=== PATIENT | male | born 1940 | race Caucasian/White ===

== ENCOUNTER → 2017-10-29 11:03 | Outpatient (CLI) | payer MEDICARE, SELFPAY ==
--- NOTE | 2017-10-29 11:06 | RAD_ITS ---
STUDY: X-RAY - LUMBOSACRAL SPINE REASON FOR EXAM: Male, 76 years old. Back pain. Pain in the right leg. TECHNIQUE: 6 view(s) of the lumbosacral spine were obtained. COMPARISON: None FINDINGS: There is straightening of the normal lumbar lordosis. There is a mild dextroscoliosis with the convexity at L4. There is retrolisthesis of L4 and L5 of 6 mm. This is maintained in flexion and extension. The alignment is otherwise preserved. There is multilevel endplate spondylosis of the lumbar vertebrae. There is multi-level degenerative disc disease with multi-level disc space narrowing. There is no evidence of acute fracture or loss of vertebral axial height. Normal bilateral sacral ala, sacroiliac joints, and visualized sacrum. Normal visualized soft tissue structures. Surgical clips are seen in the right upper quadrant. RAD/L/S Spine Comp/w Bending Views IMPRESSION: Degenerative changes of the spine, as detailed above. Electronically Signed: Francisco Zeng DO at 17:18 EDT Tel [phone], Service support ,
== END ==
PROVIDERS: Family Provider Family Medicine; PCP Family Medicine; Visit Provider Orthopaedic Surgery
DX: R29.898 Other symptoms and signs involving the musculoskeletal system (principal)
CPT/HCPCS: 72114

== ENCOUNTER → 2017-12-03 07:01 | Outpatient (CLI) | payer MEDICARE, SELFPAY ==
--- NOTE | 2017-12-03 07:08 | MRI_ITS ---
STUDY: MRI LUMBAR SPINE WITHOUT CONTRAST REASON FOR EXAM: Male, 76 years old. Back pain and right leg pain. TECHNIQUE: Standardized fat and water weighted pulse sequences were obtained in the sagittal and axial planes. COMPARISON: Lumbar spine radiographs 10/29/2017. FINDINGS: T11-T12: (Sagittal only). Schmorl's nodes in the vertebral endplates. Normal disc height and morphology. Normal central canal and bilateral intervertebral neural foramina. T12-L1: (Sagittal only). Schmorl's nodes in the vertebral endplates. Normal disc height and morphology. Normal central canal and bilateral intervertebral neural foramina. Normal lumbar lordosis. There is no substantial scoliosis. Normal conus medullaris that terminates at the lower T12 vertebral body level. L1-2: Schmorl's nodes in the vertebral endplates. Minimal disc space height narrowing. Tiny posterior annular fissure. Normal central canal and bilateral lateral recesses. Mild asymmetric disc facet arthropathy. Normal bilateral intervertebral neural foramina. L2-3: Schmorl's nodes in the vertebral endplates. Normal disc height and morphology. Mild central canal stenosis secondary to developmentally short pedicles and dorsal epidural lipomatosis. The AP canal diameter is 9.6 mm. Mild asymmetric degenerative facet arthropathy. Normal bilateral intervertebral neural foramina. L3-4: Normal L3 inferior endplate. Minimal left lateral wedging of the L4 superior endplate with Modic type II vertebral marrow fatty change underneath the left side of the fell 4 superior endplate.. Normal disc height and morphology. Mild central canal stenosis with an AP canal diameter 8.6 mm. Left posterior ligamentum flavum hypertrophy. Moderate left degenerative facet hypertrophy. Mild right degenerative facet hypertrophy. Normal bilateral intervertebral neural foramina. L4-5: Anterior and posterior marginal spurs. Moderate disc space height narrowing. Asymmetric degenerative retrolisthesis of L4 on L5. Moderate central canal stenosis with an AP canal diameter of 7.9 mm. Moderate bilateral degenerative facet hypertrophy. Left posterior ligamentum flavum. Normal bilateral intervertebral neural foramina. L5-S1: Pronounced disc space height narrowing. Grade 1 degenerative retrolisthesis of L5 on S1. No deformity of the tapered narrowing central canal due to the presence of ventral epidural fat. Normal bilateral lateral recesses. Mild to moderate degenerative facet arthropathy. Normal bilateral intervertebral neural foramina. Abnormal T1 hypointensity of the cervical, the iliac side of the SI joints and the entire vertebral bodies of the lumbar spine and sacrum. Normal visualized paraspinous soft tissue structures. MRI/Spine Lumbar (Routine) IMPRESSION: 1. Abnormal diffuse T1 hypointensity the vertebral marrow throughout the lumbar spine, the sacrum and iliac bones. The possibility of multiple myeloma is difficult to exclude. This is feasible for CT-guided core bone biopsy if desired. 2. No MRI evidence of lumbar extruded disc fragment or acute fractures or subacute fractures. 3. Pronounced S1 disc space height narrowing with grade 1 degenerative retrolisthesis of L5 on S1. 4. Moderate L4-L5 disc space height narrowing with moderate central canal stenosis, asymmetric degenerative retrolisthesis of L4 on L5 and moderate bilateral degenerative facet arthropathy. 5. Minimal left lateral wedging of the L4 superior endplate with Modic type II degenerative vertebral marrow fatty change underneath the L4 superior endplate. 6. Mild central canal stenosis at L2-L3 and L3-L4 disc levels. Electronically Signed: Merrick Thompson MD at 10:50 EDT , Service support ,
== END ==
PROVIDERS: Family Provider Family Medicine; PCP Family Medicine; Visit Provider Anesthesiology Pain Medicine
DX: M54.9 Dorsalgia, unspecified (principal); M79.606 Pain in leg, unspecified
CPT/HCPCS: 72148

== ENCOUNTER → 2018-07-18 08:54 | Outpatient (CLI) | payer MEDICARE, SELFPAY ==
--- NOTE | 2018-07-18 09:03 | NM_ITS ---
CLINICAL: 77-year-old male with reported history of lymphoma and current complaint of right lower extremity pain. WHOLE BODY 99m Tc MDP RADIONUCLIDE BONE SCINTIGRAPHY COMPARISON: MRI of the lumbar spine report 12/03/2017, FDG PET CT report dated 04/19/2009 FINDINGS: Following the intravenous administration of 26.7 mCi of 99m Tc MDP, whole body bone images reveal: 1. Increased radiopharmaceutical concentration is identified in the right hip articulation to include the anterior-posterior femoral head-acetabular interface. 2. Enhanced uptake is demonstrated in the mid cervical spine posteriorly on the left, lower cervical spine posteriorly on the right, the acromioclavicular and sternoclavicular compartments of both shoulders, right elbow, left wrist, bilateral knees, the right sacroiliac joint, right ankle. 3. The remaining skeletal structures are scintigraphically unremarkable with right renal image and urinary bladder activity identified. The left kidney is scintigraphically absent-unchanged from the results of the FDG PET/CT study dated 04/19/2009. NM/Bone Scan Whole Body IMPRESSION: 1. The increase in radiopharmaceutical concentration identified in the right hip is most consistent with significant degenerative arthritis. Plain film radiography correlation may be of benefit for further evaluation. 2. Degenerative arthritis appears evident in the cervical spine, bilateral shoulders, right elbow, left wrist, knees bilaterally, the right sacroiliac joint and right ankle. Plain film x-ray may also be of benefit in the region of the right sacroiliac joint. Electronically Signed: Quincy Strauss DO at 22:51 EST Tel , Service support ,
== END ==
PROVIDERS: Referring Provider Orthopaedic Surgery; Visit Provider Orthopaedic Surgery
DX: M51.36 Other intervertebral disc degeneration, lumbar region (principal)
CPT/HCPCS: 78306

== ENCOUNTER → 2018-11-04 10:04 | Outpatient (CLI) | payer MEDICARE, SELFPAY ==
[2017-09-17 15:35] VITALS: BMI 23.0
--- NOTE | 2018-11-04 10:07 | RAD_ITS ---
STUDY: X-RAY - PELVIS AND RIGHT HIP REASON FOR EXAM: Chronic hip pain, arthritis. TECHNIQUE: 2 views of the pelvis and hip. COMPARISON: None. FINDINGS: There are stan in the pelvis and a right ureteral stent. Normal bilateral iliac wings, sacroiliac joints and visualized sacrum. Normal bilateral superior and inferior pubic rami. Normal pubic symphysis. Normal bilateral ischial tuberosities. There is advanced arthrosis of the right hip with joint space loss, marginal osteophytes and subchondral cystic change of the superior femoral head and adjacent acetabulum. RAD/HIP, UNI W/ Pelvis 2-3 Views IMPRESSION: Right hip arthrosis. Electronically Signed: Sandoval Horn MD at 13:35 EDT Tel , Service support ,
== END ==
PROVIDERS: Referring Provider Anesthesiology Pain Medicine; Visit Provider Anesthesiology Pain Medicine
DX: M16.11 Unilateral primary osteoarthritis, right hip (principal)
CPT/HCPCS: 73502

== ENCOUNTER 2019-08-22 11:24 | Observation (INO) | payer MEDICARE, SELFPAY ==
[2019-08-22] VITALS (10 sets, daily range): BP systolic 96–130; BP diastolic 42–53; PULSE 66–78; RESP 15–28; TEMP 36.1–36.9; O2SAT 94–99; BMI 22.0; BMI 19.9
--- NOTE | 2019-08-22 11:45 | CT_ITS ---
STUDY: CT BRAIN WITHOUT CONTRAST REASON FOR EXAM: Male, 78 years old. Syncope, headache RADIATION DOSAGE (If Supplied By Facility): CTDIvol = ( 44.99 ) mGy, DLP = ( 812.98 ) mGycm TECHNIQUE: Transaxial CT imaging of the brain was performed without administration of intravenous contrast material. Individualized dose optimization techniques were used for this CT. COMPARISON: No relevant priors. FINDINGS: Normal soft tissue structures. Normal calvarium. There is mild cerebral atrophy with widening of the extra-axial spaces and ventricular dilatation. There are areas of decreased attenuation within the white matter tracts of the supratentorial brain, consistent with microvascular disease changes. Normal basal ganglia and thalami. Normal brainstem. Normal cerebellum. There is no intracranial hemorrhage. There are no findings of an acute ischemic infarction. There is mucoperiosteal inflammatory disease of the paranasal sinuses consistent with mild chronic sinusitis. CT/Brain/Head without Contrast IMPRESSION: Chronic involutional changes of the brain. Electronically Signed: Andrea Urbina MD at 12:19 EST , Service support ,
--- NOTE | 2019-08-22 11:45 | EKG12_ITS ---
Test Reason : SYNCOPE Blood Pressure : / mmHG Vent. Rate : 072 BPM Atrial Rate : 072 BPM P-R Int : 208 ms QRS Dur : 108 ms QT Int : 424 ms P-R-T Axes : 000 017 064 degrees QTc Int : 464 ms Normal sinus rhythm Normal ECG Confirmed by DEREK BOLTON, CHRISTOPH ([id number]), industrial editor RICHAR LOPEZ ([id number] on 08/25/2019 10:54:07 AM Referred By: HERMILA Confirmed By:TRACEE REED MD
--- NOTE | 2019-08-22 11:47 | ED.DCSUM_ITS ---
History of Present Illness Chief Complaint: Syncope Informant: Patient, Family Onset: Today Narrative: Patient was at his oncologist office for an iron infusion. While sitting in the waiting room states patient had a brief unresponsive episode. EMS was called. In route to the hospital patient started complaining of a severe headache. He had no vomiting. He has a history of leukemia. states he was recently hospitalized for atrial fibrillation and was started on Xarelto. Oncologist also reported the patient was felt to the possible bleeding ulcer in his esophagus. - Past Medical History (1) Leukemia Status: Chronic (2) Atrial fibrillation Status: Chronic Past Medical History - Allergies and Home Meds Allergies/Adverse Reactions: Allergies No Known Allergies Allergy (Verified 08/22/19 11:29) Primary Care Physician: Care Physician,No Primary [NON-STAFF] - Doctors: Dr. Kong Prior records reviewed: Yes Lives: Spouse/ Significant Other Review of Systems General: Denies: Chills, Fever Eyes: Denies: Visual changes - bilaterally ENT: Denies: Bilateral ear pain Cardiovascular: Denies: Chest pain Respiratory: Denies: Dyspnea, Cough Gastrointestinal: Denies: Vomiting, Diarrhea Musculoskeletal: Reports: Neck pain Skin: Denies: Rash Neurological: Reports: Headache Allergy: Denies: Uticaria Physical Exam Vital Signs/Narrative: Vital Signs Temp Pulse Resp BP Pulse Ox 08/22/19 11:27 96.9 F L 69 28 H 96/50 L 99 Inital Vital Signs reviewed: Yes General: Cachectic Head: Normocephalic ENT: Moist mucous membranes Neck: Supple Cardiovascular: Regular rate, Regular rhythm Respiratory: No distress, CTA bilaterally Abdomen: Soft, Nontender Extremities: Nontender, No edema Skin: Pallor Neurological: Alert, Oriented x3, - - Good strength and sensation in the extremities. Pupils are equal and reactive. Psychological: - - Anxious Diagnostic/Tx/Re-eval Impressions Brain CT 08/22/19 11:45 IMPRESSION: Chronic involutional changes of the brain. Electronically Signed: Andrea Urbina MD at 12:19 EST , Service support , 08/22/19 11:45 Brain/Head without Contrast [CT] Stat Laboratory Results 08/22/19 08/22/19 08/22/19 12:22 12:22 12:22 WBC 13.7 H RBC 3.56 L Hgb 8.7 L Hct 27.6 L MCV 77.5 L MCH 24.4 L MCHC 31.5 L RDW Std Deviation 45.4 H RDW Coeff of Garrett 16.1 H Plt Count 528 H MPV 9.6 Immature Gran % (Auto) 0.500 Neut % (Auto) 82.3 H Lymph % (Auto) 5.2 L Kerr % (Auto) 8.7 Eos % (Auto) 2.7 Baso % (Auto) 0.6 Absolute Neuts (auto) 11.3 H Absolute Lymphs (auto) 0.71 L Nucleated RBC % 0 PT 24.7 H INR 2.2 APTT 25.4 Sodium 141 Potassium 3.8 Chloride 111 H Carbon Dioxide 22.0 Anion Gap 8 BUN 14 Creatinine 1.58 H Estim Creat Clear Calc 38.87 Est GFR (MDRD) Af Amer 55 L Est GFR (MDRD) Non-Af 45 L BUN/Creatinine Ratio 8.9 L Glucose 121 H Calcium 8.6 Total Bilirubin 0.40 Direct Bilirubin 0.18 AST 12 L ALT 25 Alkaline Phosphatase 79 Total Protein 6.4 Albumin 2.7 L Globulin 3.7 - EKG Initial EKG Interpretation: Sinus Rhythm - Sinus at 72 with no acute ischemia. - Medical Decision Making Patient presented after near syncopal episode, severe headache, recently starting Xarelto. My initial concern was for possible intracranial hemorrhage. Patient was sent to CT scan shortly after my evaluation with no evidence of acute bleed. Patient was given a small dose of fentanyl to help with his headache. Blood work was obtained and patient was given IV fluids. Patient's hemoglobin has dropped from 9.6-8.7 and white count has gone from 9.57 up to 13.7. Patient was recently admitted at [facility] secondary to an episode of A. fib RVR. At that time he was complaining of dysphasia. He had a speech and swallow evaluation as well as a GI consult. GI recommended outpatient follow-up for possible EGD due to concern for esophagitis which may be secondary to his oral chemo. Patient denies having any dark tarry stools or obvious source of blood loss. Overall he just feels very weak. At this point he does feel improved, but I recommended observation for repeat labs and cardiac monitoring. Patient is interested in following up for an EGD and is comfortable staying at [facility]. I advised him that surgery may see him while he is here to determine if an EGD should be performed. I will speak with the hospitalist. ED Disposition - Plan for ED Patient: Disposition: Acute Care Hospital [facility] Diagnosis: Near syncope, Anemia, Leukemia Referrals: Care Physician,No Primary [NON-STAFF] -
[2019-08-22] MEDS: 0.9% Normal Saline 1,000 ML 150 ML IV (12:26)
[2019-08-22] MEDS: fentaNYL 100 MCG/2 ML Ampul 12.5 MCG IV ×2 (12:27→14:20)
[2019-08-22 12:37] LABS: Absolute Lymphocyte Count 0.71 X10^3/uL (0.83-4.51); Absolute Neutrophil Count 11.3 X10^3/uL (2.0-7.7); Basophil# 0.08 X10^3/uL; Basophil% 0.6 % (0-1); Eosinophil# 0.37 X10^3/uL; Eosinophils% 2.7 % (0-5); Hematocrit 27.6 % (40-54); Hemoglobin 8.7 g/dL (13.0-16.5); Lymphocyte # 0.71 X10^3/ul (4.0); Lymphocyte % 5.2 % (19-41); Mean Corp Hgb Conc 31.5 g/dL (32-36); Mean Corpuscular Hgb 24.4 pg (27.0-32.0); Mean Corpuscular Volume 77.5 fL (80-94); Mean Platelet Vol. 9.6 fl (6.2-12.0); Monocyte# 1.19 X10^3/uL; Monocyte% 8.7 % (0-10); NRBC Flagged by Analyzer 0 % (0-5); Neutrophil # 11.25 X10^3/uL (2.7-7.7); Neutrophil % 82.3 % (47-70); Platelet Count 528 K/mm3 (150-450); RBC Distribution Width CV 16.1 % (11.6-14.6); RBC Distribution Width SD 45.4 fl (35.1-43.9); Red Blood Count 3.56 M/mm3 (4.6-6.2); White Blood Count 13.7 K/mm3 (4.4-11.0)
[2019-08-22 12:46] LABS: International Normalized Ratio 2.2; Prothrombin Time (Protime)PT. 24.7 SECONDS (11.7-14.9)
[2019-08-22 12:47] LABS: Partial Thromboplast Time 25.4 Seconds (24.1-36.2)
[2019-08-22 12:51] LABS: AST(SGOT) 12 U/L (15-37); Alanine Aminotransfer ALT/SGPT 25 U/L (16-61); Albumin, Serum 2.7 g/dL (3.2-5.0); Alkaline Phosphatase 79 U/L (45-117); Anion Gap 8 (5-15); BUN 14 mg/dL (7-18); BUN/Creat Ratio 8.9 RATIO (10-20); Bilirubin, Direct 0.18 mg/dL (0.00-0.30); Calcium,Total 8.6 mg/dL (8.5-10.1); Chloride 111 mmol/L (98-107); Creatinine, Serum 1.58 mg/dL (0.70-1.30); EST Glomerular Filtration Rate 45 mL/min (>60); Est Glom Filt Rate - Afr Amer 55 mL/min (>60); Estimated Creatinine Clearance 38.87 ml/min; Globulin 3.7 g/dL (2.2-4.2); Glucose 121 mg/dL (74-106); Potassium 3.8 mmol/L (3.5-5.1); Protein, Total 6.4 g/dL (6.4-8.2); Sodium Level 141 mmol/L (136-145)
--- NOTE | 2019-08-22 15:12 | ECHOD_ITS ---
Reason For Study: Syncope Procedure This was a 2D Doppler, Color Flow transthoracic echocardiogram. The study was technically difficult. Exam performed portable in patient room. Left Ventricle Normal LV size. The estimated ejection fraction is 60 %. No evidence for diastolic dysfunction. No regional wall motion abnormalities noted. Right Ventricle Normal RV size. Normal systolic function. Atria Normal left atrium. Normal right atrium. No doppler evidence for ASD. Mitral Valve There is no mitral valve stenosis. Mild (1+) mitral valve insufficiency. Tricuspid Valve There is no tricuspid stenosis. Trivial tricuspid valve insufficiency. Pulmonary artery systolic pressure is 35-40 mmHg. Aortic Valve Trisinus/trileaflet aortic valve. There is no aortic stenosis. No aortic valve insufficiency. Pulmonic Valve There is no pulmonic valvular stenosis. No pulmonic valve insufficiency. Great Vessels Normal aortic root. Pericardium/Pleural No pericardial effusion. MMode/2D Measurements & Calculations LVIDd: 4.8 cm IVSd: 0.77 cm Ao root diam: 2.8 cm LVIDs: 3.0 cm LVPWd: 1.0 cm RVDd: 3.1 cm FS: 36.6 % LAV(MOD-bp): 63.2 ml LA A4 area: 19.9 cm2 LA dimension(2D): 3.7 cm LAV(MOD-bp) Indexed: 32.3 ml/m2 LAV(MOD-sp2): 69.0 ml LAV(MOD-sp4): 58.6 ml RA A4 area: 15.4 cm2 Doppler Measurements & Calculations MV E max tres: 108.6 cm/sec Lat Peak E' Tres: 9.5 cm/sec Med Peak E' Tres: 6.1 cm/sec MV A max tres: 68.0 cm/sec E/E' lat: 11.4 E/E' med: 17.7 MV E/A: 1.6 Ao V2 max: 121.7 cm/sec LV V1 max: 89.3 cm/sec PA V2 max: 105.9 cm/sec Ao max P.9 mmHg LV V1 max P.2 mmHg Ao V2 mean: 85.0 cm/sec Ao mean P.2 mmHg Ao V2 VTI: 26.0 cm TR max tres: 288.5 cm/sec TR max P.3 mmHg Interpretation Summary No evidence for diastolic dysfunction. Mild (1+) mitral valve insufficiency. Trivial tricuspid valve insufficiency. Pulmonary artery systolic pressure is 35-40 mmHg. The estimated ejection fraction is 60 %. Ordering Physician: Edwin Garcia Referring Physician: Jose Maria Billy Performed By: Suzan Abebe, JUAN, RVT
[2019-08-22] MEDS: 0.9% Normal Saline 1,000 ML 100 ML IV ×2 (15:57→17:14)
--- NOTE | 2019-08-22 16:47 | PCM.HP.STD ---
<David Calvin - Last Filed: 08/22/19 16:47> Problem List (1) Near syncope Status: Acute (2) Iron deficiency anemia Status: Chronic (3) CML (chronic myelocytic leukemia) Status: Chronic (4) Atrial fibrillation Status: Chronic History of Present Illness Date of Admission: 08/22/19 Chief Complaint: near syncope The patient is a 78 year old M with pmhx of CML, pt of Dr. Kong, iron def. anemia, Afib, hx of colostomy for UC with J pouch, who presented to the ER with c/o near syncope. He went to see Dr. Kong for an iron infusion today. He was sitting in the waiting room and suddenly became unresponsive with his eyes looking around glossed over. He quickly came around however was sent to the ER for suspected near syncope. He was found to be significantly anemic with Hgb 8.7. The patient states that Dr. Kong was concerned that he had a bleeding esophageal ulcer. The patient has had increased difficulty swallowing and cannot tolerate solids right now. He denies vomiting or regurgitating. He has not noticed black or bloody stools. He denies a hx of iron deficiency. He was recently started on xarelto after being admitted to [facility] about a month ago and found to have Afib/RVR. [] Past Medical History Past Medical History (Chronic Problems): Chronic Problems (Last Reviewed 10/29/17 @ 10:39 by Thierno Nguyen) Leukemia (Chronic) Atrial fibrillation (Chronic) Iron deficiency anemia (Chronic) CML (chronic myelocytic leukemia) (Chronic) Allergies No Known Allergies Allergy (Verified 08/22/19 11:29) Home Medications: Ambulatory Orders Medication Instructions Recorded Amiodarone HCl 400 mg PO BID 08/22/19 Diltiazem HCl [Diltiazem 24Hr ER] 360 mg PO DAILY 08/22/19 Fluticasone 0.05% [Flonase Nasal 2 spray NASAL DAILY 08/22/19 [place]] Omeprazole 20 mg PO BID 08/22/19 Rivaroxaban [Xarelto] 15 mg PO DINNER 08/22/19 Surgical History: Surgical History (Last Reviewed 10/29/17 @ 10:39 by Thierno Nguyen) History of abdominal surgery Z98.890 colostomy 1995 History of cholecystectomy Z98.890, Z90.49 Surgical History: cataract, cholecystectomy, - - colostomy, J pouch, Psychiatric History: No pertinent psych hx Lives: Spouse/ Significant Other Smoking Status: Never smoker Tobacco Use: Non-smoker, Secondhand Alcohol: None Drugs: None - *Family History Maternal History Items: - - unknown - adopted. Review of Systems Constitutional: Reports: Weakness. Denies: Chills, Fever, Weight Change HEENT: Denies: Head Aches, Sinus Congestion, Sinus Drainage Cardiovascular: Denies: Chest Pain, Palpitations Respiratory: Denies: Cough, Shortness of Breath, Shortness of breath at rest, Sputum production Gastrointestinal: Denies: Abdominal Pain, Nausea, Vomiting Genitourinary: Denies: Dysuria Musculoskeletal: Denies: Joint Pain, Joint Tenderness Skin: Denies: Lesions, Rash, Skin Changes, Wounds Neurological: Denies: Numbness, Tingling, Focal weakness Psychiatric: Denies: Anxiety, Depression, Homicidal Ideations, Suicidal Ideations Hematologic/ Lymphatic: Denies: Easy Bruising, Easy Bleeding VTE Information - Inpt Only VTE Present on Admission: No VTE Mechan Device Prophylaxis: SCD's VTE Pharm Prophylaxis ordered?: No Patient Problems: Active and Suspected Problems (Last Reviewed 10/29/17 @ 10:39 by Thierno Nguyen) Near syncope (Acute) Anemia (Acute) - Physical Exam Vitals/I&O's: Vital Signs Temp Pulse Resp BP Pulse Ox 98.4 F 76 15 117/49 L 98 08/22/19 15:19 08/22/19 15:19 08/22/19 15:19 08/22/19 15:19 08/22/19 15:19 Oxygen Delivery Method Room Air Weight: 146 lb 13.246 oz Body Mass Index (BMI) 19.9 Intake and Output for Last 24 Hours 08/20/19 08/21/19 08/22/19 23:59 23:59 23:59 Intake Total 555 / 555 Balance 555 / 555 General: Alert, Oriented x3, Cooperative, - - frail HEENT: Atraumatic, PERRLA, EOMI, Normocephalic Neck: Supple, No JVD, Negative Carotid Bruits Lungs: Clear to auscultation, Normal air movement Cardiovascular: Regular rate, No murmurs Abdomen: Bowel Sounds Present, Soft, Non Tender Extremities: No edema, Capillary Refill Less than 3 Seconds Skin: No rashes, No breakdown Musculoskeletal: No Tenderness to Palpation of Joints or Extremities Neurological: Cranial nerves II-XII grossly intact Psych/Mental Status: Normal Affect, Appropriate, Alert and oriented to time, place, person, mood and affect Laboratory Results 08/22/19 12:22: WBC 13.7 H, RBC 3.56 L, Hgb 8.7 L, Hct 27.6 L, MCV 77.5 L, MCH 24.4 L, MCHC 31.5 L, RDW Std Deviation 45.4 H, RDW Coeff of Garrett 16.1 H, Plt Count 528 H, MPV 9.6, Immature Gran % (Auto) 0.500, Neut % (Auto) 82.3 H, Lymph % (Auto) 5.2 L, [place] % (Auto) 8.7, Eos % (Auto) 2.7, Baso % (Auto) 0.6, Absolute Neuts (auto) 11.3 H, Absolute Lymphs (auto) 0.71 L, Nucleated RBC % 0 08/22/19 12:22: PT 24.7 H, INR 2.2, APTT 25.4 08/22/19 12:22: Sodium 141, Potassium 3.8, Chloride 111 H, Carbon Dioxide 22.0, Anion Gap 8, BUN 14, Creatinine 1.58 H, Estim Creat Clear Calc 38.87, Est GFR (MDRD) Af Amer 55 L, Est GFR (MDRD) Non-Af 45 L, BUN/Creatinine Ratio 8.9 L, Glucose 121 H, Calcium 8.6, Total Bilirubin 0.40, Direct Bilirubin 0.18, AST 12 L, ALT 25, Alkaline Phosphatase 79, Total Protein 6.4, Albumin 2.7 L, Globulin 3.7 Current Medications Acetaminophen (Tylenol) 650 mg PO Q6H PRN PRN PRN Reason: Pain Score 1-10/Temp > 100.7 F Sodium Chloride () 1,000 mls @ 100 mls/hr IV .Q10H [facility] Last Admin: 08/22/19 15:57 Dose: 100 mls/hr Documented by: Pantoprazole Sodium 40 mg/ (Sodium Chloride) 110 mls @ 330 mls/hr IV Q12 [facility] Melatonin (Melatonin) 3 mg PO QHS PRN PRN PRN Reason: INSOMNIA Ondansetron HCl (Zofran) 4 mg IV Q8H PRN PRN PRN Reason: NAUSEA/VOMITING Sodium Chloride () 10 - 40 ml IV UD PRN PRN Reason: SALINE FLUSH Assessment/Plan All Active Problems (Last Reviewed 10/29/17 @ 10:39 by Thierno Nguyen) Near syncope (Acute) Anemia (Acute) 1. Near syncope - I suspect this is related to his anemia as below. Will maintain on tele and we will check Echo. Will give gentle IV fluids with his somewhat elevated creatinine however we do not know his baseline. Will check orthos as well. 2. Iron deficiency anemia - start venofer. Check stool occult blood. Hold xarelto. IV protonix. Consult gen surgery. Pt also has difficulty swallowing and cannot eat solids currently. Will also obtain speech evals and swallow studies if recommended. 3. CML - receiving oral chemo as o/p with Dr. Kong 4. Afib - rate controlled. hold xarelto. Continue amio/cardizem DVT ppx: SCDs This patient was seen by David Calvin PA-C under the supervision of Dr. Garcia. <Edwin Garcia F - Last Filed: 08/22/19 19:49> History of Present Illness The patient is a 78 year old M [] Past Medical History Allergies No Known Allergies Allergy (Verified 08/22/19 11:29) Surgical History: Surgical History (Last Reviewed 10/29/17 @ 10:39 by Thierno Nguyen) History of abdominal surgery Z98.890 colostomy 1995 History of cholecystectomy Z98.890, Z90.49 - Physical Exam Vitals/I&O's: Vital Signs Temp Pulse Resp BP Pulse Ox 98.4 F 69 15 125/48 H 98 08/22/19 15:19 08/22/19 19:00 08/22/19 15:19 08/22/19 18:29 08/22/19 15:19 Oxygen Delivery Method Room Air Weight: 146 lb 13.246 oz Body Mass Index (BMI) 19.9 Orthostatic Vital Signs Start: 08/22/19 18:12 Freq: q24h Status: Active Protocol: Activity Type Activity Date Activity User E-Sign Co-Sign Detail Recorded Client Recorded Date Recorded By Document 08/22/19 18:29 [facility] [id number] 08/22/19 18:29 BAM 08/22/19 18:29 Orthostatic Vitals Standing -Blood Pressure (90/60-120/80 mm Hg) 130/49 H -Extremity Use Left Arm -Pulse Rate (60-100 beats/min) 78 Sitting -Blood Pressure (90/60-120/80 mm Hg) 120/42 L -Extremity Use Left Arm -Pulse Rate (60-100 beats/min) 74 Lying -Blood Pressure (90/60-120/80 mm Hg) 125/48 H -Extremity Use Left Arm -Pulse Rate (60-100 beats/min) 68 Intake and Output for Last 24 Hours 08/20/19 08/21/19 08/22/19 23:59 23:59 23:59 Intake Total 756.67 / 756.67 Balance 756.67 / 756.67 Laboratory Results 08/22/19 12:22: WBC 13.7 H, RBC 3.56 L, Hgb 8.7 L, Hct 27.6 L, MCV 77.5 L, MCH 24.4 L, MCHC 31.5 L, RDW Std Deviation 45.4 H, RDW Coeff of [place] 16.1 H, Plt Count 528 H, MPV 9.6, Immature Gran % (Auto) 0.500, Neut % (Auto) 82.3 H, Lymph % (Auto) 5.2 L, [place] % (Auto) 8.7, Eos % (Auto) 2.7, Baso % (Auto) 0.6, Absolute Neuts (auto) 11.3 H, Absolute Lymphs (auto) 0.71 L, Nucleated RBC % 0 08/22/19 12:22: PT 24.7 H, INR 2.2, APTT 25.4 08/22/19 12:22: Sodium 141, Potassium 3.8, Chloride 111 H, Carbon Dioxide 22.0, Anion Gap 8, BUN 14, Creatinine 1.58 H, Estim Creat Clear Calc 38.87, Est GFR (MDRD) Af Amer 55 L, Est GFR (MDRD) Non-Af 45 L, BUN/Creatinine Ratio 8.9 L, Glucose 121 H, Calcium 8.6, Total Bilirubin 0.40, Direct Bilirubin 0.18, AST 12 L, ALT 25, Alkaline Phosphatase 79, Total Protein 6.4, Albumin 2.7 L, Globulin 3.7 Current Medications Acetaminophen (Tylenol) 650 mg PO Q6H PRN PRN PRN Reason: Pain Score 1-10/Temp > 100.7 F Pantoprazole Sodium 40 mg/ (Sodium Chloride) 110 mls @ 330 mls/hr IV Q12 [facility] Sodium Chloride () 1,000 mls @ 100 mls/hr IV .Q10H [facility] Last Infusion: 08/22/19 17:35 Dose: 100 mls/hr Documented by: Melatonin (Melatonin) 3 mg PO QHS PRN PRN PRN Reason: INSOMNIA Ondansetron HCl (Zofran) 4 mg IV Q8H PRN PRN PRN Reason: NAUSEA/VOMITING Sodium Chloride () 10 - 40 ml IV UD PRN PRN Reason: SALINE FLUSH Code Visit Addendum: Dr. Garcia I personally examined the patient and reviewed the chart. I agree with the above. 78-year-old male with CML and a microcytic anemia presents to the hospital with presyncope. He had gone to his oncologist office today to get an iron infusion and while sitting in the chair he tilted his head back and sort of stared out into space and his had to shake him back awake. He denies any blackouts and did not hit his head. He was unable to get the iron infusion he instead presented to the ER for evaluation. He says that everything started when he started his chemotherapy, he is also had A. fib which is caused him to be short of breath and they tried cardioverting him in the past unsuccessfully. His oncologist was also concerned if he did have an esophageal ulcer causing his low hemoglobin, there is no need for an acute inpatient surgical consult instead will wait for an outpatient EGD and follow-up. However he does have gross blood then would consult surgery. He was given his iron infusion today here in the hospital and he will be continued on IV fluids, will hold his Cardizem for now as well as his Xarelto and will evaluate in the morning. I also had a 20-minute discussion on advanced care planning with both the patient and his family members. He does not want to go back on the chemotherapy agent that he had been on and if that was the only option, he would prefer to go hospice. I encouraged him to talk with his oncologist to see if there are other more tolerable chemotherapeutic agents and to make his decision once he has all the information available. OBSV E&M: [id number] Initial observation care L3
[2019-08-23] VITALS (13 sets, daily range): BP systolic 123–166; BP diastolic 54–90; PULSE 68–85; RESP 14–20; TEMP 36.4–37; O2SAT 94–98
[2019-08-23] MEDS: 0.9% Normal Saline 1,000 ML 100 ML IV ×2 (02:42→12:07)
[2019-08-23 06:51] LABS: Absolute Lymphocyte Count 0.72 X10^3/uL (0.83-4.51); Absolute Neutrophil Count 5.9 X10^3/uL (2.0-7.7); Basophil# 0.07 X10^3/uL; Basophil% 0.9 % (0-1); Eosinophil# 0.51 X10^3/uL; Eosinophils% 6.2 % (0-5); Hematocrit 25.2 % (40-54); Hemoglobin 7.9 g/dL (13.0-16.5); Lymphocyte # 0.72 X10^3/ul (4.0); Lymphocyte % 8.8 % (19-41); Mean Corp Hgb Conc 31.3 g/dL (32-36); Mean Corpuscular Hgb 24.3 pg (27.0-32.0); Mean Corpuscular Volume 77.5 fL (80-94); Mean Platelet Vol. 9.5 fl (6.2-12.0); Monocyte# 1.02 X10^3/uL; Monocyte% 12.4 % (0-10); NRBC Flagged by Analyzer 0 % (0-5); Neutrophil # 5.86 X10^3/uL (2.7-7.7); Neutrophil % 71.2 % (47-70); Platelet Count 447 K/mm3 (150-450); RBC Distribution Width CV 16.3 % (11.6-14.6); RBC Distribution Width SD 45.5 fl (35.1-43.9); Red Blood Count 3.25 M/mm3 (4.6-6.2); White Blood Count 8.2 K/mm3 (4.4-11.0)
[2019-08-23 07:15] LABS: Anion Gap 5 (5-15); BUN 14 mg/dL (7-18); BUN/Creat Ratio 10.4 RATIO (10-20); Calcium,Total 8.1 mg/dL (8.5-10.1); Chloride 111 mmol/L (98-107); Creatinine, Serum 1.34 mg/dL (0.70-1.30); EST Glomerular Filtration Rate 54 mL/min (>60); Est Glom Filt Rate - Afr Amer 66 mL/min (>60); Estimated Creatinine Clearance 41.42 ml/min; Glucose 84 mg/dL (74-106); Potassium 3.9 mmol/L (3.5-5.1); Sodium Level 139 mmol/L (136-145)
[2019-08-23] MEDS: dilTIAZem CD 180 MG Capsule 360 MG PO (09:33)
[2019-08-23] MEDS: Amiodarone 200 MG Tablet 400 MG PO ×2 (09:34→22:31)
[2019-08-23] MEDS: Fluticasone 0.05% 1 SPRAY NASAL.SRY 2 SPRAY NASAL (09:35)
[2019-08-23 11:47] LABS: Color, Urine Yellow (Yellow); Glucose, Dipstick Normal (Normal); Ketone-Dipstick Negative (Negative); Leukocyte Esterase-Dipstick 500 /ul (Negative); Nitrite-Dipstick Negative (Negative); Occult Blood-Urine 250 /ul (Negative); Protein-Dipstick 30 mg/dl (Negative); Urine Bilirubin Dipstick Negative (Negative); Urine Clarity Sl. Cloudy (Clear); Urine Urobilinogen Normal (Normal)
[2019-08-23 11:53] LABS: Bacteria 1+ /hpf (None Seen); Mucous, Urine RARE /hpf (<or=2+); Red Blood Cells-Urine 5-10 SEEN /hpf (0-5); Squamous Epithelial Cells - UA 0-5 SEEN /hpf (0-5); White Blood Cells 10-25 SEEN /hpf (0-5)
[2019-08-23 12:27] LABS: Hematocrit 25.8 % (40-54); Hemoglobin 8.1 g/dL (13.0-16.5)
[2019-08-23] MEDS: Ceftriaxone 1 GM/50 ML BAG IV (13:16)
--- NOTE | 2019-08-23 13:16 | PN_ITS ---
Patient Problems: Active and Suspected Problems (Last Reviewed 10/29/17 @ 10:39 by Thierno Nguyen) Near syncope (Acute) Anemia (Acute) Vitals/I&O's: Vital Signs Temp Pulse Resp BP Pulse Ox 98.6 F 84 18 146/59 H 98 08/23/19 09:20 08/23/19 11:00 08/23/19 09:20 08/23/19 09:20 08/23/19 09:20 Oxygen Delivery Method Room Air Weight: 146 lb 13.246 oz Body Mass Index (BMI) 19.9 Orthostatic Vital Signs Start: 08/22/19 18:12 Freq: q24h Status: Active Protocol: Activity Type Activity Date Activity User E-Sign Co-Sign Detail Recorded Client Recorded Date Recorded By Document 08/23/19 03:20 [facility] [id number] 08/23/19 04:55 [facility] 08/23/19 03:20 Orthostatic Vitals Standing -Blood Pressure (90/60-120/80) 131/58 H -Extremity Use Left Arm -Pulse Rate (60-100) 80 Sitting -Blood Pressure (90/60-120/80) 129/60 H -Extremity Use Left Arm -Pulse Rate (60-100) 76 Lying -Blood Pressure (90/60-120/80) 124/54 H -Extremity Use Left Arm -Pulse Rate (60-100) 78 Intake and Output for Last 24 Hours 08/21/19 08/22/19 08/23/19 23:59 23:59 23:59 Intake Total 1491.67 / 1491.67 2103.34 / 2103.34 Output Total 200 / 200 Balance 1491.67 / 1491.67 1903.34 / 1903.34 Microbiology Past 72 Hours 08/22/19 18:40 Stool Stool Occult Blood (JOHNNY) - Final Occult Blood Positive Laboratory Results 08/23/19 06:22: WBC 8.2, RBC 3.25 L, Hgb 7.9 L, Hct 25.2 L, MCV 77.5 L, MCH 24.3 L, MCHC 31.3 L, RDW Std Deviation 45.5 H, RDW Coeff of [place] 16.3 H, Plt Count 447, MPV 9.5, Immature Gran % (Auto) 0.500, Neut % (Auto) 71.2 H, Lymph % (Auto) 8.8 L, [place] % (Auto) 12.4 H, Eos % (Auto) 6.2 H, Baso % (Auto) 0.9, Absolute Neuts (auto) 5.9, Absolute Lymphs (auto) 0.72 L, Nucleated RBC % 0 08/23/19 06:22: Sodium 139, Potassium 3.9, Chloride 111 H, Carbon Dioxide 23.0, Anion Gap 5, BUN 14, Creatinine 1.34 H, Estim Creat Clear Calc 41.42, Est GFR (MDRD) Af Amer 66, Est GFR (MDRD) Non-Af 54 L, BUN/Creatinine Ratio 10.4, Glucose 84, Calcium 8.1 L 08/23/19 11:30: Urine Color Yellow, Urine Clarity Sl. Cloudy, Urine pH 6.0, Ur Specific [place] 1.010, Urine Protein 30 H, Urine Glucose (UA) Normal, Urine Ketones Negative, Urine Occult Blood 250 H, Urine Nitrite Negative, Urine Bilirubin Negative, Urine Urobilinogen Normal, Ur Leukocyte Esterase 500 H, Urine RBC 5-10 SEEN, Urine WBC 10-25 SEEN, Ur Squamous Epith Cells 0-5 SEEN, Urine Bacteria 1+, Urine Mucus RARE 08/23/19 12:06: Hgb 8.1 L, Hct 25.8 L Current Medications Acetaminophen (Tylenol) 650 mg PO Q6H PRN PRN PRN Reason: Pain Score 1-10/Temp > 100.7 F Amiodarone HCl (Cordarone) 400 mg PO BID [facility] Last Admin: 08/23/19 09:34 Dose: 400 mg Documented by: Diltiazem HCl (Cardizem Cd) 360 mg PO DAILY [facility] Last Admin: 08/23/19 09:33 Dose: 360 mg Documented by: Fluticasone Propionate (Flonase Nasal [place]) 2 spray NASAL DAILY [facility] Last Admin: 08/23/19 09:35 Dose: 2 spray Documented by: Pantoprazole Sodium 40 mg/ (Sodium Chloride) 110 mls @ 330 mls/hr IV Q12 [facility] Last Infusion: 08/23/19 10:18 Dose: Infused Documented by: Sodium Chloride () 1,000 mls @ 100 mls/hr IV .Q10H [facility] Last Admin: 08/23/19 12:07 Dose: 100 mls/hr Documented by: Ceftriaxone Sodium (Rocephin) 1 gm in 50 mls @ 100 mls/hr IV Q24 [facility] Melatonin (Melatonin) 3 mg PO QHS PRN PRN PRN Reason: INSOMNIA Ondansetron HCl (Zofran) 4 mg IV Q8H PRN PRN PRN Reason: NAUSEA/VOMITING Sodium Chloride () 10 - 40 ml IV UD PRN PRN Reason: SALINE FLUSH STROKE Vital Signs/Narrative: Vital Signs Temp Pulse Resp BP Pulse Ox 08/23/19 11:00 84 08/23/19 09:20 98.6 F 82 18 146/59 H 98 Medical Necessity - Tobacco Use Smoking Status: Never smoker Tobacco Use: Non-smoker, Secondhand Assessment/Plan All Active Problems (Last Reviewed 10/29/17 @ 10:39 by Thierno Nguyen) Near syncope (Acute) Anemia (Acute)
--- NOTE | 2019-08-23 13:31 | PN_ITS ---
<David Calvin - Last Filed: 08/23/19 13:31> Patient Problems: Active and Suspected Problems (Last Reviewed 10/29/17 @ 10:39 by Thierno Nguyen) Near syncope (Acute) Anemia (Acute) Reason for Visit: near syncope Subjective: Pt complains of fatigue. He currently has no dizziness/LH. He is not SOB. He has had improvement in his swallowing since admission. He reports blood in his urine. He denies black or bloody stools. No vomiting. Vitals/I&O's: Vital Signs Temp Pulse Resp BP Pulse Ox 98.6 F 84 18 146/59 H 98 08/23/19 09:20 08/23/19 11:00 08/23/19 09:20 08/23/19 09:20 08/23/19 09:20 Oxygen Delivery Method Room Air Weight: 146 lb 13.246 oz Body Mass Index (BMI) 19.9 Orthostatic Vital Signs Start: 08/22/19 18:12 Freq: q24h Status: Active Protocol: Activity Type Activity Date Activity User E-Sign Co-Sign Detail Recorded Client Recorded Date Recorded By Document 08/23/19 03:20 [facility] [id number] 08/23/19 04:55 [facility] 08/23/19 03:20 Orthostatic Vitals Standing -Blood Pressure (90/60-120/80) 131/58 H -Extremity Use Left Arm -Pulse Rate (60-100) 80 Sitting -Blood Pressure (90/60-120/80) 129/60 H -Extremity Use Left Arm -Pulse Rate (60-100) 76 Lying -Blood Pressure (90/60-120/80) 124/54 H -Extremity Use Left Arm -Pulse Rate (60-100) 78 Intake and Output for Last 24 Hours 08/21/19 08/22/19 08/23/19 23:59 23:59 23:59 Intake Total 1491.67 / 1491.67 2218.34 / 221.34 Output Total 200 / 200 Balance 1491.67 / 1491.67 / General: Alert, Oriented x3, Cooperative HEENT: Atraumatic, PERRLA, EOMI, Normocephalic Neck: Supple, No JVD, Negative Carotid Bruits Lungs: Clear to auscultation, Normal air movement Cardiovascular: Regular rate, No murmurs Abdomen: Bowel Sounds Present, Soft, Non Tender Extremities: No edema, Capillary Refill Less than 3 Seconds Skin: No rashes, No breakdown Musculoskeletal: No Tenderness to Palpation of Joints or Extremities Neurological: Cranial nerves II-XII grossly intact Psych/Mental Status: Normal Affect, Appropriate, Alert and oriented to time, place, person, mood and affect Microbiology Past 72 Hours 08/22/19 18:40 Stool Stool Occult Blood (JOHNNY) - Final Occult Blood Positive Laboratory Results 08/23/19 06:22: WBC 8.2, RBC 3.25 L, Hgb 7.9 L, Hct 25.2 L, MCV 77.5 L, MCH 24.3 L, MCHC 31.3 L, RDW Std Deviation 45.5 H, RDW Coeff of Garrett 16.3 H, Plt Count 447, MPV 9.5, Immature Gran % (Auto) 0.500, Neut % (Auto) 71.2 H, Lymph % (Auto) 8.8 L, Fisher % (Auto) 12.4 H, Eos % (Auto) 6.2 H, Baso % (Auto) 0.9, Absolute Neuts (auto) 5.9, Absolute Lymphs (auto) 0.72 L, Nucleated RBC % 0 08/23/19 06:22: Sodium 139, Potassium 3.9, Chloride 111 H, Carbon Dioxide 23.0, Anion Gap 5, BUN 14, Creatinine 1.34 H, Estim Creat Clear Calc 41.42, Est GFR (MDRD) Af Amer 66, Est GFR (MDRD) Non-Af 54 L, BUN/Creatinine Ratio 10.4, Glucose 84, Calcium 8.1 L 08/23/19 11:30: Urine Color Yellow, Urine Clarity Sl. Cloudy, Urine pH 6.0, Ur Specific [place] 1.010, Urine Protein 30 H, Urine Glucose (UA) Normal, Urine Ketones Negative, Urine Occult Blood 250 H, Urine Nitrite Negative, Urine Bilirubin Negative, Urine Urobilinogen Normal, Ur Leukocyte Esterase 500 H, Urine RBC 5-10 SEEN, Urine WBC 10-25 SEEN, Ur Squamous Epith Cells 0-5 SEEN, Urine Bacteria 1+, Urine Mucus RARE 08/23/19 12:06: Hgb 8.1 L, Hct 25.8 L Current Medications Acetaminophen (Tylenol) 650 mg PO Q6H PRN PRN PRN Reason: Pain Score 1-10/Temp > 100.7 F Amiodarone HCl (Cordarone) 400 mg PO BID [facility] Last Admin: 08/23/19 09:34 Dose: 400 mg Documented by: Diltiazem HCl (Cardizem Cd) 360 mg PO DAILY [facility] Last Admin: 08/23/19 09:33 Dose: 360 mg Documented by: Fluticasone Propionate (Flonase Nasal [place]) 2 spray NASAL DAILY [facility] Last Admin: 08/23/19 09:35 Dose: 2 spray Documented by: Pantoprazole Sodium 40 mg/ (Sodium Chloride) 110 mls @ 330 mls/hr IV Q12 [facility] Last Infusion: 08/23/19 10:18 Dose: Infused Documented by: Sodium Chloride () 1,000 mls @ 100 mls/hr IV .Q10H [facility] Last Infusion: 08/23/19 13:16 Dose: 0 mls/hr Documented by: Ceftriaxone Sodium (Rocephin) 1 gm in 50 mls @ 100 mls/hr IV Q24 [facility] Last Admin: 08/23/19 13:16 Dose: 100 mls/hr Documented by: Melatonin (Melatonin) 3 mg PO QHS PRN PRN PRN Reason: INSOMNIA Ondansetron HCl (Zofran) 4 mg IV Q8H PRN PRN PRN Reason: NAUSEA/VOMITING Sodium Chloride () 10 - 40 ml IV UD PRN PRN Reason: SALINE FLUSH STROKE Vital Signs/Narrative: Vital Signs Pulse 08/23/19 11:00 84 Medical Necessity - Tobacco Use Smoking Status: Never smoker Tobacco Use: Non-smoker, Secondhand Assessment/Plan All Active Problems (Last Reviewed 10/29/17 @ 10:39 by Thierno Nguyen) Near syncope (Acute) Anemia (Acute) 1. Near syncope - probably due to anemia. Echo unremarkable. no events on tele. Orthos negative. 2. Iron deficiency anemia - venofer given. likely will have PO iron absorption issues with prior abdominal surgery. Hold xarelto. Continue protonix. Hgb improved without transfusion. Will continue to monitor H/H. Also has difficulty swallowing and cannot eat solids currently. Will also obtain speech evals and swallow studies if recommended. No plan for endoscopy at this time. 3. Acute UTI - with hematuria and + UA will start rocephin and follow culture. He has a ureteral stent in place as well. 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 F/u as outpatient. If pt worsens, consider consultation. 5. Afib - rate controlled. hold xarelto. Continue amio/cardizem DVT ppx: SCDs This patient was seen by David Calvin PA-C under the supervision of Dr. Sanders <Tommy,[place] - Last Filed: 08/23/19 16:04> Vitals/I&O's: Vital Signs Temp Pulse Resp BP Pulse Ox 98.6 F 68 18 146/59 H 98 08/23/19 09:20 08/23/19 15:00 08/23/19 09:20 08/23/19 09:20 08/23/19 09:20 Oxygen Delivery Method Room Air Weight: 66.6 kg Body Mass Index (BMI) 19.9 Orthostatic Vital Signs Start: 08/22/19 18:12 Freq: q24h Status: Active Protocol: Activity Type Activity Date Activity User E-Sign Co-Sign Detail Recorded Client Recorded Date Recorded By Document 08/23/19 03:20 [facility] [id number] 08/23/19 04:55 [facility] 08/23/19 03:20 Orthostatic Vitals Standing -Blood Pressure (90/60-120/80) 131/58 H -Extremity Use Left Arm -Pulse Rate (60-100) 80 Sitting -Blood Pressure (90/60-120/80) 129/60 H -Extremity Use Left Arm -Pulse Rate (60-100) 76 Lying -Blood Pressure (90/60-120/80) 124/54 H -Extremity Use Left Arm -Pulse Rate (60-100) 78 Intake and Output for Last 24 Hours 08/21/19 08/22/19 08/23/19 23:59 23:59 23:59 Intake Total 1491.67 / 1491.67 2268.34 / 2268.34 Output Total 200 / 200 Balance 1491.67 / 1491.67 2068.34 / 2068.34 Microbiology Past 72 Hours 08/22/19 18:40 Stool Stool Occult Blood (JOHNNY) - Final Occult Blood Positive Laboratory Results 08/23/19 06:22: WBC 8.2, RBC 3.25 L, Hgb 7.9 L, Hct 25.2 L, MCV 77.5 L, MCH 24.3 L, MCHC 31.3 L, RDW Std Deviation 45.5 H, RDW Coeff of Garrett 16.3 H, Plt Count 447, MPV 9.5, Immature Gran % (Auto) 0.500, Neut % (Auto) 71.2 H, Lymph % (Auto) 8.8 L, Fisher % (Auto) 12.4 H, Eos % (Auto) 6.2 H, Baso % (Auto) 0.9, Absolute Neuts (auto) 5.9, Absolute Lymphs (auto) 0.72 L, Nucleated RBC % 0 08/23/19 06:22: Sodium 139, Potassium 3.9, Chloride 111 H, Carbon Dioxide 23.0, Anion Gap 5, BUN 14, Creatinine 1.34 H, Estim Creat Clear Calc 41.42, Est GFR (MDRD) Af Amer 66, Est GFR (MDRD) Non-Af 54 L, BUN/Creatinine Ratio 10.4, Glucose 84, Calcium 8.1 L 08/23/19 11:30: Urine Color Yellow, Urine Clarity Sl. Cloudy, Urine pH 6.0, Ur Specific [place] 1.010, Urine Protein 30 H, Urine Glucose (UA) Normal, Urine Ketones Negative, Urine Occult Blood 250 H, Urine Nitrite Negative, Urine Bilirubin Negative, Urine Urobilinogen Normal, Ur Leukocyte Esterase 500 H, Urine RBC 5-10 SEEN, Urine WBC 10-25 SEEN, Ur Squamous Epith Cells 0-5 SEEN, Urine Bacteria 1+, Urine Mucus RARE 08/23/19 12:06: Hgb 8.1 L, Hct 25.8 L Current Medications Acetaminophen (Tylenol) 650 mg PO Q6H PRN PRN PRN Reason: Pain Score 1-10/Temp > 100.7 F Amiodarone HCl (Cordarone) 400 mg PO BID [facility] Last Admin: 08/23/19 09:34 Dose: 400 mg Documented by: Diltiazem HCl (Cardizem Cd) 360 mg PO DAILY [facility] Last Admin: 08/23/19 09:33 Dose: 360 mg Documented by: Fluticasone Propionate (Flonase Nasal [place]) 2 spray NASAL DAILY [facility] Last Admin: 08/23/19 09:35 Dose: 2 spray Documented by: Pantoprazole Sodium 40 mg/ (Sodium Chloride) 110 mls @ 330 mls/hr IV Q12 [facility] Last Infusion: 08/23/19 10:18 Dose: Infused Documented by: Sodium Chloride () 1,000 mls @ 100 mls/hr IV .Q10H [facility] Last Infusion: 08/23/19 13:47 Dose: 100 mls/hr Documented by: Ceftriaxone Sodium (Rocephin) 1 gm in 50 mls @ 100 mls/hr IV Q24 [facility] Last Infusion: 08/23/19 13:47 Dose: Infused Documented by: Melatonin (Melatonin) 3 mg PO QHS PRN PRN PRN Reason: INSOMNIA Nutritional Formula (Lactose Free) (Ensure Enlive) 120 ml PO 4X/DAY [facility] Ondansetron HCl (Zofran) 4 mg IV Q8H PRN PRN PRN Reason: NAUSEA/VOMITING Sodium Chloride () 10 - 40 ml IV UD PRN PRN Reason: SALINE FLUSH STROKE Vital Signs/Narrative: Vital Signs Pulse 08/23/19 15:00 68 Assessment/Plan This patient was seen in conjunction with DANIEL Snowden. I have independently interviewed and examined the patient and reviewed pertinent historical, laboratory, and other data. Please refer to DANIEL Snowden note for his patient's presentation, findings, and recommendations. I have reviewed and his note and concur with his documentation Patient was seen and examined. He feels much improved. He complains of hematuria ongoing for so many months. He denied any melena or hematochezia. Outpatient EGD planned after discharge. Physical Exam: Gen: Cachectic, pale, not jaundiced, well-hydrated CVS:HS I +II, regular, no murmurs RESP: Diminished at lung bases GI: BS present and normal, soft, nontender, no palpable organs EXT:No edema ASSESSMENT: 1. Hematuria, history of urethral stent, possible UTI 2. GI bleed 3. Near syncope 4. Iron deficiency anemia 5. CML 6. Chronic atrial fibrillation, rate controlled, Xarelto held on account of possible GI bleed Plan: Continue to hold Xarelto Start IV ceftriaxone, follow-up on urine cultures Venofer IV x1 today Trend H&H Will transfuse when below 7 Outpatient EGD planned Patient is to also follow-up with his urologist in the outpatient for his ureteral stent evaluation for hematuria Code Visit Inpatient E&M: 33975 Subs Hosp L2
--- NOTE | 2019-08-23 16:28 | CM.UR ---
Went in to talk to patient around 4pm. about observation status and the HERNANDES form. explained that I went over several of the things going on and he does not meet for IP level of care. Explained about the copays and medications not being covered. Patient then requested to be discharged and rest of care be given OP. Xsolis score is 63. Doesn't meet under Interqual for Syncope, arrythmia or anemia. Notified DANIEL Snowden at this time that patient is requesting to be discharged. States he will alert Dr. Sanders. Kaitlynn Her RN, [facility].
[2019-08-23 18:27] LABS: Hematocrit 23.7 % (40-54); Hemoglobin 7.4 g/dL (13.0-16.5)
[2019-08-24] VITALS (15 sets, daily range): BP systolic 144–161; BP diastolic 57–69; PULSE 70–85; RESP 12–18; TEMP 36.7–37.2; O2SAT 94–995
[2019-08-24] MEDS: Furosemide 40 MG/4 ML Vial IV (02:35)
[2019-08-24] MEDS: 0.9% Normal Saline 1,000 ML 100 ML IV (05:53)
[2019-08-24 07:18] LABS: Hematocrit 34.8 % (40-54); Hemoglobin 11.4 g/dL (13.0-16.5)
[2019-08-24] MEDS: Ceftriaxone 1 GM/50 ML BAG IV (09:08)
[2019-08-24] MEDS: Amiodarone 200 MG Tablet 400 MG PO (09:09)
[2019-08-24] MEDS: dilTIAZem CD 180 MG Capsule 360 MG PO (09:10)
[2019-08-24] MEDS: Fluticasone 0.05% 1 SPRAY NASAL.SRY 2 SPRAY NASAL (09:10)
--- NOTE | 2019-08-24 11:22 | PCM.DC ---
- Discharge Diagnoses Current Active Problems: Current Active and Chronic Problems (Last Reviewed 10/29/17 @ 10:39 by Thierno Nguyen) Leukemia (Chronic) Near syncope (Acute) Anemia (Acute) Iron deficiency anemia (Chronic) CML (chronic myelocytic leukemia) (Chronic) You will use the following diet at home:: Cardiac Your food should be the consistency of: Regular Your liquids should be the consistency of: Regular/Thin Discharge Activity: Return to Normal Activity Allergies/Adverse Reactions: Allergies No Known Allergies Allergy (Verified 08/22/19 11:29) Medications to take at Discharge Amiodarone HCl 400 mg PO BID 08/22/19 Diltiazem HCl [Diltiazem 24Hr ER] 360 mg PO DAILY 08/22/19 Fluticasone 0.05% [Flonase Nasal [place]] 2 spray NASAL DAILY 08/22/19 Cephalexin [Keflex] 500 mg PO BID #10 cap 08/24/19 Pantoprazole Sodium [Protonix] 40 mg PO BID #60 tab 08/24/19 The following prescriptions were given: Cephalexin [Keflex] 500 mg PO BID #10 cap Transmission Status: Pending to [facility] Pantoprazole Sodium [Protonix] 40 mg PO BID #60 tab Transmission Status: Pending to [facility] Primary Care Physician: Care Physician,No Primary [NON-STAFF] - Please follow up with your Primary Care Physician in: 1-2 weeks Test Results: Test results from this visit will be discussed in further detail at your follow-up appointment, if applicable. Please Follow Up With: Irlanda Kong MD When: this week Please Follow Up With: Urology When: This week Please Follow Up With: Sam Mills MD When: 1-2 weeks
--- NOTE | 2019-08-24 13:36 | DS.PCM_ITS ---
<David Calvin - Last Filed: 08/24/19 13:36> Discharge Date and Diagnosis Date of Admission: 08/22/19 Date of Discharge: 08/24/19 - Primary Discharge Diagnosis Near syncope 2/2 acute on chronic anemia 2/2 hematuria and GI loss UTI iron deficiency CML Afib - Secondary Discharge Diagnosis Chronic Problems (Last Reviewed 10/29/17 @ 10:39 by Thierno Nguyen) Leukemia (Chronic) Atrial fibrillation (Chronic) Iron deficiency anemia (Chronic) CML (chronic myelocytic leukemia) (Chronic) Hospital Course and Treatment Imaging Results: CT/Brain/Head without Contrast IMPRESSION: Chronic involutional changes of the brain. Echo: Interpretation Summary No evidence for diastolic dysfunction. Mild (1+) mitral valve insufficiency. Trivial tricuspid valve insufficiency. Pulmonary artery systolic pressure is 35-40 mmHg. The estimated ejection fraction is 60 %. Operations: None Procedures: 2-D Echocardiogram Summary of Care Provided: Hospital Course: The patient is a 78 year old M with pmhx of CML, iron deficiency anemia, afib on xarelto, UC with prior colon resection who presented to the ER with c/o near syncope. He was sitting at the hematology office waiting for an iron infusion and became unresponsive with his eyes glossed over looking around, not completely unconscious. He e was brought to the ER and found to have Hgb of 8.7. with microcytosis. He was admitted to PCU and given venofer. He was taken off xarelto. He stated he was worried he could have an esophageal ulcer. He was having difficulty swallowing and had not been eating solid foods. He tested positive for stool occult blood. He denies black or bloody stools, and denied vomiting. He did complain of hematuria. UA was consistent with UTI. He was placed on rocephin. Initially his hemoglobin improved without transfusion, it did later decrease and he was transfused with two units PRBCs. The next morning his hgb significant was improved. He did develop some erythema and itching on his chest after the transfusion - no SOB or swelling anywhere. OTC benadryl 25-50 mg q6h prn for itching was recommended. Orthostatic vitals were negative. Echocardiogram was unremarkable. He had no events on tele. His afib rate was well controlled. He was transitioned to keflex for UTI. Final culture is pending. He has a ureteral stent that is due to be changed. I recommended he follow up with his urologist this week. I recommended he follow up with general surgery regarding his hemoccult stools in 1-2 weeks. He should follow up with his PCP in 1-2 weeks. He should follow up with his rag shredder this week. He was discharged home in stable condition. This patient was seen by David Calvin PA-C under the supervision of Dr. Garcia. [] - Physical Exam Vitals/I&O's: Vital Signs Temp Pulse Resp BP Pulse Ox 98.9 F 85 18 157/68 H 95 08/24/19 11:35 08/24/19 11:35 08/24/19 11:35 08/24/19 11:35 08/24/19 11:35 Oxygen Delivery Method Room Air Weight: 146 lb 13.246 oz Body Mass Index (BMI) 19.9 Orthostatic Vital Signs Start: 08/22/19 18:12 Freq: q24h Status: Active Protocol: Activity Type Activity Date Activity User E-Sign Co-Sign Detail Recorded Client Recorded Date Recorded By Document 08/24/19 03:51 CM [id number] 08/24/19 03:51 CM 08/24/19 03:51 Orthostatic Vitals Standing -Blood Pressure (90/60-120/80) 144/58 H -Extremity Use Right Arm -Pulse Rate (60-100) 79 Sitting -Blood Pressure (90/60-120/80) 145/69 H -Extremity Use Right Arm -Pulse Rate (60-100) 84 Lying -Blood Pressure (90/60-120/80) 150/63 H -Extremity Use Right Arm -Pulse Rate (60-100) 83 Intake and Output for Last 24 Hours 08/22/19 08/23/19 08/24/19 23:59 23:59 23:59 Intake Total 1491.67 / 1491.67 3606.67 / 3606.67 1655 / 1655 Output Total 200 / 200 100 / 100 Balance 1491.67 / 1491.67 3406.67 / 3406.67 1555 / 1555 General: Alert, Oriented x3, Cooperative, - - frail HEENT: Atraumatic, PERRLA, EOMI, Normocephalic Neck: Supple, No JVD, Negative Carotid Bruits Lungs: Clear to auscultation, Normal air movement Cardiovascular: Regular rate, No murmurs Abdomen: Bowel Sounds Present, Soft, Non Tender Extremities: No edema, Capillary Refill Less than 3 Seconds Skin: No rashes, No breakdown, - - pallor Musculoskeletal: No Tenderness to Palpation of Joints or Extremities Neurological: Cranial nerves II-XII grossly intact Psych/Mental Status: Normal Affect, Appropriate Microbiology Past 72 Hours 08/22/19 18:40 Stool Stool Occult Blood (JOHNNY) - Final Occult Blood Positive Laboratory Results 08/23/19 18:10: Hgb 7.4 L, Hct 23.7 L 08/23/19 19:20: Blood Type A NEGATIVE, Antibody Screen NEGATIVE, Crossmatch See Detail 08/24/19 06:50: Hgb 11.4 L, Hct 34.8 L Discharge Diet: Low fat/ Low Cholesterol, 2000 mg Sodium Diet Discharge Activity: Return to Normal Activity Home Medications: Medications to take at Discharge Amiodarone HCl 400 mg PO BID 08/22/19 Diltiazem HCl [Diltiazem 24Hr ER] 360 mg PO DAILY 08/22/19 Fluticasone 0.05% [Flonase Nasal [place]] 2 spray NASAL DAILY 08/22/19 Cephalexin [Keflex] 500 mg PO BID #10 cap 08/24/19 Pantoprazole Sodium [Protonix] 40 mg PO BID #60 tab 08/24/19 Following Prescrptions Were Given to Patient: Cephalexin [Keflex] 500 mg PO BID #10 cap Transmission Status: Re[facility] by [facility] Pantoprazole Sodium [Protonix] 40 mg PO BID #60 tab Transmission Status: Received by [facility] Primary Care Physician: Care Physician,No Primary [NON-STAFF] - Please follow up with your Primary Care Physician in: 1-2 weeks Please Follow Up With: Irlanda Kong MD When: this week Please Follow Up With: Urology When: This week Please Follow Up With: Sam Mills MD When: 1-2 weeks Disposition: Home Minutes spent on discharge:: 35 Patient Condition:: Stable Medical Necessity - Tobacco Use Smoking Status: Never smoker Tobacco Use: Non-smoker, Secondhand Meaningful Use Info Meaningful Use Diagnoses (Choose all that apply): None applicable <Edwin Garcia - Last Filed: 08/24/19 14:11> Discharge Date and Diagnosis - Secondary Discharge Diagnosis Chronic Problems (Last Reviewed 10/29/17 @ 10:39 by Thierno Nguyen) Leukemia (Chronic) Atrial fibrillation (Chronic) Iron deficiency anemia (Chronic) CML (chronic myelocytic leukemia) (Chronic) Hospital Course and Treatment Summary of Care Provided: The patient is a 78 year old M [] - Physical Exam Vitals/I&O's: Vital Signs Temp Pulse Resp BP Pulse Ox 98.9 F 85 18 157/68 H 95 08/24/19 11:35 08/24/19 11:35 08/24/19 11:35 08/24/19 11:35 08/24/19 11:35 Oxygen Delivery Method Room Air Weight: 146 lb 13.246 oz Body Mass Index (BMI) 19.9 Orthostatic Vital Signs Start: 08/22/19 18:12 Freq: q24h Status: Active Protocol: Activity Type Activity Date Activity User E-Sign Co-Sign Detail Recorded Client Recorded Date Recorded By Document 08/24/19 03:51 CM [id number] 08/24/19 03:51 CM 08/24/19 03:51 Orthostatic Vitals Standing -Blood Pressure (90/60-120/80) 144/58 H -Extremity Use Right Arm -Pulse Rate (60-100) 79 Sitting -Blood Pressure (90/60-120/80) 145/69 H -Extremity Use Right Arm -Pulse Rate (60-100) 84 Lying -Blood Pressure (90/60-120/80) 150/63 H -Extremity Use Right Arm -Pulse Rate (60-100) 83 Intake and Output for Last 24 Hours 08/22/19 08/23/19 08/24/19 23:59 23:59 23:59 Intake Total 1491.67 / 1491.67 3606.67 / 3606.67 1655 / 1655 Output Total 200 / 200 100 / 100 Balance 1491.67 / 1491.67 3406.67 / 3406.67 1555 / 1555 Microbiology Past 72 Hours 08/22/19 18:40 Stool Stool Occult Blood (JOHNNY) - Final Occult Blood Positive Laboratory Results 08/23/19 18:10: Hgb 7.4 L, Hct 23.7 L 08/23/19 19:20: Blood Type A NEGATIVE, Antibody Screen NEGATIVE, Crossmatch See Detail 08/24/19 06:50: Hgb 11.4 L, Hct 34.8 L Code Visit Insert addendum 78-year-old male who has a history of CML and was started on chemotherapy, he states that he was not tolerating the chemotherapy and was in his oncologist office for an iron infusion because of being anemic. He presented with near syncope. Work-up for this was negative and he was started on IV fluids and has since resolved. He was given 2 iron transfusions and then he was transfused 2 units of packed red blood cells as well. He was also found to have a positive Hemoccult as well as a UTI. He was started on Rocephin and discharged on Keflex with outpatient follow-up and will monitor his urine culture and let him know if we need to change his antibiotics, he does have a chronic ureteral stent which may be causing this and this may be a chronic issue for him. He will need to follow-up with outpatient EGD for possible esophageal ulcer since he states that he has difficulty swallowing at times. Will dis continue his Xarelto for his A. fib and continue with his Cardizem and his amiodarone only, until he can have this GI bleed evaluated otherwise he is stable for discharge today and would like to go home. OBSV E&M: [id number] Observation care discharge
== END 2019-08-24 11:23 | disposition home or self-care (01) ==
LOC: ED 14:18 → PCU 14:51
PROVIDERS: Physician Assistant; Admitting Provider Family Medicine; Emergency Provider Emergency Medicine; PCP Nurse Practitioner Primary Care; Visit Provider Family Medicine
DX: R55 Syncope and collapse (principal); D50.9 Iron deficiency anemia, unspecified; R31.9 Hematuria, unspecified; C92.10 Chronic myeloid leukemia, BCR/ABL-positive, not having achieved remission; I48.20 Chronic atrial fibrillation, unspecified; Z79.899 Other long term (current) drug therapy; Z79.01 Long term (current) use of anticoagulants; Z79.51 Long term (current) use of inhaled steroids; R13.10 Dysphagia, unspecified; N39.0 Urinary tract infection, site not specified; R64 Cachexia; Z68.1 Body mass index [BMI] 19.9 or less, adult; K92.2 Gastrointestinal hemorrhage, unspecified; I08.1 Rheumatic disorders of both mitral and tricuspid valves; Z90.49 Acquired absence of other specified parts of digestive tract; Z87.19 Personal history of other diseases of the digestive system; Z77.22 Contact with and (suspected) exposure to environmental tobacco smoke (acute) (chronic)
CPT/HCPCS: 36415; 36430; 70450; 80048; 80076; 81001; 82274; 85014; 85018; 85025; 85610; 85730; 86850; 86900; 86901; 86920; 86922; 87086; 87088; 92507; 92610; 93005; 93306; 96361; 96365; 96366; 96367; 96375; 96376; 97162; 97165; 97802; 99218; 99285; 99406; J1756; J7030; J7040; P9016; A4216; G0378; J1940